=== PATIENT | male | born 1945 | race Caucasian/White ===

== ENCOUNTER 2022-10-26 04:44 | Inpatient (IN) | payer MEDICARE, MEDICAID ==
[2022-10-26] MEDS ORDERED: Senokot S 8.6-50 MG TAB PO PRN (05:53)
[2022-10-26] MEDS ORDERED: Acetaminophen 325 MG TAB PO PRN (05:53)
[2022-10-26] MEDS ORDERED: Calcium Carbonate 500 MG ChewTAB PO PRN (05:53)
[2022-10-26] MEDS ORDERED: Guaifenesin DM 100-10/5 ML UDCUP PO PRN (05:53)
[2022-10-26] MEDS ORDERED: Ondansetron PF 4 MG/2 ML Vial IVP PRN (05:53)
[2022-10-26] MEDS: Lactated Ringer's 500 ML IV SCH ×2 (08:07→16:41)
[2022-10-26] MEDS: Thiamine HCl 200 MG/2 ML VIAL SLOW IVP SCH (08:13)
[2022-10-26] MEDS: cefTRIAXone\\ROCEPHIN 1 GM in Sodium Chloride 0.9% 100 ML IVPB SCH (08:13)
[2022-10-26] MEDS: Aspirin 81 mg Enteric Coated Tablet PO SCH (08:14)
[2022-10-26] MEDS: Folic Acid 1 MG TAB PO SCH (08:14)
[2022-10-26 08:30] VITALS: BMI 55.3
[2022-10-26] MEDS ORDERED: Multivitamin W/ Minerals 1 TAB PO SCH (09:00)
[2022-10-26] MEDS ORDERED: Lorazepam 1 MG TAB PO PRN (10:35)
[2022-10-26] MEDS ORDERED: Lorazepam 2 MG/ML VIAL IM PRN (10:35)
[2022-10-26] MEDS ORDERED: Ondansetron ODT 4 MG TAB PO PRN (10:35)
[2022-10-27] MEDS: Lactated Ringer's 500 ML IV SCH ×3 (02:15→22:15)
[2022-10-27 05:27] LABS: Anion Gap 12 mmol/L (10-20); BUN (Urea Nitrogen) 23 mg/dL (8.4-25.7); Calc. Creatinine Clearance 74 mL/min (70-130); Calcium 8.7 mg/dL (7.8-10.44); Carbon Dioxide 25 mmol/L (23-31); Cardiac Risk 3.2 (Less than 4.5); Chloride 107 mmol/L (98-107); Cholesterol 137 mg/dl (< 200 Desired); Estimated GFR 79; Glucose 103 mg/dL (83-110); HDL Cholesterol 43 mg/dL (>60 Neg Risk); LDL Cholesterol, Calculated 79 mg/dL; Sodium 140 mmol/L (136-145); Triglycerides 75 mg/dL (Less than 150)
[2022-10-27 05:45] LABS: Thyroid Stimulating Hormone 3.3802 uIU/mL (0.35-4.94)
[2022-10-27] MEDS: cefTRIAXone\\ROCEPHIN 1 GM in Sodium Chloride 0.9% 100 ML IVPB SCH (05:56)
[2022-10-27] MEDS: Thiamine HCl 200 MG/2 ML VIAL SLOW IVP SCH (05:56)
[2022-10-27] MEDS ORDERED: Amlodipine 5 MG TAB PO SCH (06:45)
[2022-10-27] MEDS ORDERED: THIAMINE HCL IVPB SCH (09:00)
[2022-10-27] MEDS ORDERED: SODIUM CHLORIDE IVPB SCH (09:00)
[2022-10-27] MEDS ORDERED: ADMIXTURE FEE IVPB SCH (09:00)
[2022-10-27] MEDS: Multivit, Therapeutic 1 TAB PO SCH (09:26)
[2022-10-27] MEDS: Aspirin 81 mg Enteric Coated Tablet PO SCH (09:26)
[2022-10-27] MEDS: Folic Acid 1 MG TAB PO SCH (09:26)
[2022-10-27] MEDS ORDERED: Lorazepam 1 MG TAB PO PRN (10:35)
[2022-10-27] MEDS: Thiamine HCl 500 MG, Admixture Fee 1 EACH in Sodium Chloride 0.9% 250 ML 250 ML IVPB SCH ×2 (14:26→20:20)
[2022-10-27] MEDS: Tamsulosin HCl 0.4 MG CAP PO SCH (20:20)
[2022-10-28 05:17] LABS: #Basophils 0.1 10x3/uL (0.0-0.2); #Eosinphils 0.3 10x3/uL (0.0-0.5); #Monocytes 0.5 10x3/uL (0.0-1.1); #Neutrophils 5.2 10x3/uL (1.5-8.4); %Basophils 0.7 % (0.0-2.0); %Eosinophils 3.9 % (0.0-6.0); %Lymphocytes 14.6 % (18.0-47.0); %Monocytes 7.3 % (0.0-10.0); %Neutrophils 73.2 % (40.0-75.0); Hemoglobin 13.7 g/dL (13.5-17.5); Mean Corpuscular HGB CONC 33.7 g/dL (32.0-36.0); Mean Corpuscular Hemoglobin 30.1 pg (27.0-33.0); Mean Corpuscular Volume 89.5 fl (81.2-95.1); Mean Platelet Volume 9.7 fl (7.4-10.4); Platelet Count 262 10x3/uL (150-450); RBC Distribution Width 11.9 % (11.5-14.5); Red Blood Cell (RBC) Count 4.55 10x6/uL (4.32-5.72); White Blood Cell (WBC) Count 7.1 10x3/uL (3.5-10.5)
[2022-10-28 05:37] LABS: ALT (SGPT) 11 U/L (8-55); AST (SGOT) 14 U/L (5-34); Albumin 3.3 g/dL (3.4-4.8); Alkaline Phosphatase 51 U/L (40-110); Anion Gap 11 mmol/L (10-20); BUN (Urea Nitrogen) 23 mg/dL (8.4-25.7); Bilirubin, Direct 0.2 mg/dL (0.1-0.3); Bilirubin, Total 0.4 mg/dL (0.2-1.2); Calc. Creatinine Clearance 71 mL/min (70-130); Calcium 8.6 mg/dL (7.8-10.44); Carbon Dioxide 26 mmol/L (23-31); Chloride 107 mmol/L (98-107); Estimated GFR 75; Glucose 104 mg/dL (83-110); Magnesium 1.9 mg/dL (1.6-2.6); Protein, Total 5.8 g/dL (5.8-8.1); Sodium 140 mmol/L (136-145)
[2022-10-28] MEDS: cefTRIAXone\\ROCEPHIN 1 GM in Sodium Chloride 0.9% 100 ML IVPB SCH (06:23)
[2022-10-28] MEDS ORDERED: Amlodipine 5 MG TAB PO SCH (09:00)
[2022-10-28] MEDS: Multivit, Therapeutic 1 TAB PO SCH (09:37)
[2022-10-28] MEDS: Thiamine HCl 500 MG, Admixture Fee 1 EACH in Sodium Chloride 0.9% 250 ML 250 ML IVPB SCH ×3 (09:37→22:06)
[2022-10-28] MEDS: Folic Acid 1 MG TAB PO SCH (09:38)
[2022-10-28] MEDS: Cyanocobalamin 1000 MCG/ML VIAL IM SCH (09:38)
[2022-10-28] MEDS: Aspirin 81 mg Enteric Coated Tablet PO SCH (09:38)
[2022-10-28] MEDS: Amlodipine 10 MG TAB PO SCH (09:38)
[2022-10-28] MEDS ORDERED: Lorazepam 1 MG TAB PO PRN (10:35)
[2022-10-28] MEDS ORDERED: OLANZapine 10 MG VIAL IM SCH (12:00)
[2022-10-28] MEDS ORDERED: Lorazepam 2 MG/ML VIAL SLOW IVP PRN (12:03)
[2022-10-28] MEDS ORDERED: Lorazepam 2 MG/ML VIAL ONE (12:13)
[2022-10-28] MEDS ORDERED: Lorazepam 2 MG/ML VIAL SLOW IVP SCH (13:00)
[2022-10-28] MEDS: Tamsulosin HCl 0.4 MG CAP PO SCH (22:06)
[2022-10-29 04:34] LABS: #Eosinphils 0.3 10x3/uL (0.0-0.5); #Monocytes 0.4 10x3/uL (0.0-1.1); %Basophils 0.7 % (0.0-2.0); %Eosinophils 4.6 % (0.0-6.0); %Lymphocytes 18.5 % (18.0-47.0); %Monocytes 7.5 % (0.0-10.0); %Neutrophils 68.4 % (40.0-75.0); Hemoglobin 14.1 g/dL (13.5-17.5); Mean Corpuscular HGB CONC 34.6 g/dL (32.0-36.0); Mean Corpuscular Hemoglobin 30.9 pg (27.0-33.0); Mean Corpuscular Volume 89.5 fl (81.2-95.1); Mean Platelet Volume 9.6 fl (7.4-10.4); Platelet Count 260 10x3/uL (150-450); RBC Distribution Width 12.1 % (11.5-14.5); Red Blood Cell (RBC) Count 4.56 10x6/uL (4.32-5.72); White Blood Cell (WBC) Count 5.8 10x3/uL (3.5-10.5)
[2022-10-29 04:46] LABS: Anion Gap 11 mmol/L (10-20); BUN (Urea Nitrogen) 18 mg/dL (8.4-25.7); Calc. Creatinine Clearance 78 mL/min (70-130); Calcium 8.8 mg/dL (7.8-10.44); Carbon Dioxide 26 mmol/L (23-31); Chloride 106 mmol/L (98-107); Estimated GFR 84; Glucose 94 mg/dL (83-110); Potassium 3.8 mmol/L (3.5-5.1); Sodium 139 mmol/L (136-145)
[2022-10-29 05:02] LABS: Syphilis Antibody Nonreactive (Nonreactive); Syphilis Antibody Index 0.06 S/CO (<1.00 Non-Reactive)
[2022-10-29] MEDS ORDERED: Thiamine 100 MG TAB PO SCH (09:00)
[2022-10-29] MEDS: Folic Acid 1 MG TAB PO SCH (10:23)
[2022-10-29] MEDS: Aspirin 81 mg Enteric Coated Tablet PO SCH (10:24)
[2022-10-29] MEDS: Multivit, Therapeutic 1 TAB PO SCH (10:24)
[2022-10-29] MEDS: Amlodipine 10 MG TAB PO SCH (10:24)
[2022-10-29] MEDS: Thiamine HCl 500 MG, Admixture Fee 1 EACH in Sodium Chloride 0.9% 250 ML 250 ML IVPB SCH ×3 (10:26→20:04)
[2022-10-29] MEDS ORDERED: Lorazepam 0.5 MG TAB PO PRN (10:35)
[2022-10-29] MEDS ORDERED: hydrOXYzine 25 MG TAB PO PRN (18:13)
[2022-10-29] MEDS: Tamsulosin HCl 0.4 MG CAP PO SCH (20:04)
[2022-10-30 05:05] LABS: #Basophils 0.1 10x3/uL (0.0-0.2); #Eosinphils 0.3 10x3/uL (0.0-0.5); #Monocytes 0.5 10x3/uL (0.0-1.1); %Eosinophils 4.9 % (0.0-6.0); %Lymphocytes 18.6 % (18.0-47.0); %Monocytes 8.7 % (0.0-10.0); %Neutrophils 66.3 % (40.0-75.0); Hemoglobin 13.9 g/dL (13.5-17.5); Mean Corpuscular Hemoglobin 30.7 pg (27.0-33.0); Mean Corpuscular Volume 90.3 fl (81.2-95.1); Mean Platelet Volume 9.8 fl (7.4-10.4); Platelet Count 261 10x3/uL (150-450); Red Blood Cell (RBC) Count 4.53 10x6/uL (4.32-5.72)
[2022-10-30 05:22] LABS: Anion Gap 10 mmol/L (10-20); BUN (Urea Nitrogen) 23 mg/dL (8.4-25.7); Calc. Creatinine Clearance 72 mL/min (70-130); Calcium 8.6 mg/dL (7.8-10.44); Carbon Dioxide 26 mmol/L (23-31); Chloride 108 mmol/L (98-107); Estimated GFR 76; Glucose 95 mg/dL (83-110); Sodium 140 mmol/L (136-145)
[2022-10-30 05:39] LABS: HIV (1/2) Antibody/Antigen Non-Reactive (NonReactive)
[2022-10-30] MEDS: Thiamine HCl 500 MG, Admixture Fee 1 EACH in Sodium Chloride 0.9% 250 ML 250 ML IVPB SCH (10:48)
[2022-10-30] MEDS: Aspirin 81 mg Enteric Coated Tablet PO SCH (10:49)
[2022-10-30] MEDS: Amlodipine 10 MG TAB PO SCH (10:49)
[2022-10-30] MEDS: Multivit, Therapeutic 1 TAB PO SCH (10:49)
[2022-10-30] MEDS: Folic Acid 1 MG TAB PO SCH (10:50)
[2022-10-30] MEDS: Cyanocobalamin 1000 MCG/ML VIAL IM SCH (10:53)
[2022-10-30 14:23] VITALS: BP 163/101; TEMP 97.5
[2022-11-24] MEDS ORDERED: Cyanocobalamin 1000 MCG/ML VIAL IM SCH (09:00)
== END 2022-10-30 14:23 | disposition home or self-care (01) | DRG 896 ==
LOC: INTOOBSV 04:44 → CSHTELE 04:44 → OBSVTOIN 10-27 11:03
PROVIDERS: ADMIT Student in an Organized Health Care Education/Training Program; ATTEND Family Medicine
PROC: 0T9B70Z Drainage of Bladder with Drainage Device, Via Natural or Artificial Opening (ICD-10-PCS; principal; 2022-10-27)
DX: F10.159 Alcohol abuse with alcohol-induced psychotic disorder, unspecified (principal); G93.41 Metabolic encephalopathy; N30.00 Acute cystitis without hematuria; F03.90 Unspecified dementia, unspecified severity, without behavioral disturbance, psychotic disturbance, mood disturbance, and anxiety; I44.0 Atrioventricular block, first degree; K40.90 Unilateral inguinal hernia, without obstruction or gangrene, not specified as recurrent; E53.8 Deficiency of other specified B group vitamins; R33.9 Retention of urine, unspecified; R03.0 Elevated blood-pressure reading, without diagnosis of hypertension; N28.9 Disorder of kidney and ureter, unspecified; Z98.890 Other specified postprocedural states; Z87.891 Personal history of nicotine dependence
CPT/HCPCS: 36415; 70551; 80048; 80061; 80076; 82607; 83735; 84443; 85025; 86780; 87086; 87389; 93306; 93880; 96372; 96374; 96375; 96376; G0378; J0696; J1650; J2060; J3411; J3420; J3490; J7050; J7120